=== PATIENT | female | born 1965 | race Caucasian/White ===

== ENCOUNTER → 2016-06-27 | Outpatient (CLI) | payer BC | END | disposition home or self-care (01) | LOC: C.PAPS 15:26 | PROVIDERS: ATTEND Obstetrics & Gynecology | DX: Z01.419 Encounter for gynecological examination (general) (routine) without abnormal findings (principal) ==

== ENCOUNTER → 2017-01-21 | Outpatient (CLI) | payer BC ==
--- NOTE | 2017-01-21 09:45 | DIAGNOSTIC IMAGING REPORT ---
EXAMINATION: RENAL ULTRASOUND CLINICAL HISTORY: ADRENAL HYPERPLASIA COMPARISON STUDY: None FINDINGS: The right kidney measures 10.5 cm. The left kidney measures 10.9 cm. There is no evidence of hydronephrosis. There are no renal masses. Neither adrenal gland was visualized. No bladder abnormalities are visualized. Bilateral ureteral jets were visualized. IMPRESSION : 1. Normal renal ultrasound 2. Neither adrenal gland was visualized on sonographic evaluation. If adrenal gland evaluation is desired, then a dedicated CT or MRI scan of the adrenal glands would be recommended in follow-up Electronically signed by: Pavan Vuong M.D. 01/21/2017 9:44 AM Dictated Date/Time: 01/21/2017 9:42 AM
== END | disposition home or self-care (01) ==
LOC: C.ULTR 08:59
PROVIDERS: ATTEND Family Medicine
DX: E27.8 Other specified disorders of adrenal gland (principal)

== ENCOUNTER → 2017-02-11 | Outpatient (CLI) | payer BC ==
--- NOTE | 2017-02-12 07:48 | MAMMOGRAPHY REPORT ---
BILATERAL DIGITAL SCREENING MAMMOGRAM TOMOSYNTHESIS WITH CAD: 02/11/2017 CLINICAL HISTORY: Routine screening. Patient has no complaints. TECHNIQUE: Breast tomosynthesis in addition to standard 2D mammography was performed. Current study was also evaluated with a Computer Aided Detection (CAD) system. COMPARISON: Comparison is made to exams dated: 01/25/2016 mammogram, 01/19/2015 mammogram, 01/18/2014 m ammogram, 01/17/2013 mammogram, 12/30/2011 ultrasound, and 06/27/2011 mammogram - [facility]ter. BREAST COMPOSITION: The tissue of both breasts is heterogeneously dense, which may obscure small mas ses. FINDINGS: There are multiple bilateral round and oval circumscribed masses scattered in both breasts . The circumscribed borders are best appreciated on the tomosynthesis images. This is a typically b enign mammographic pattern. No obvious angular, irregular or spiculated mass is seen. No focal area of distortion or new suspicious calcifications. IMPRESSION: ACR BI-RADS CATEGORY 2: BENIGN There is no mammographic evidence of malignancy. A 1 year screening mammogram is recommended. The pa tient will receive written notification of the results. Approximately 10% of breast cancers are not detected with mammography. A negative mammographic report should not delay biopsy if a clinically suggestive mass is present. Loli Fleming M.D. ay/:02/11/2017 15:10:11 [employer]: Sarah ZAVALA)([place]), [facility] letter sent: Normal 1/2 BI-RADS Code: ACR BI-RADS Category 2: Benign
== END | disposition home or self-care (01) ==
LOC: C.MAMM 14:39
PROVIDERS: ATTEND Family Medicine
DX: Z12.31 Encounter for screening mammogram for malignant neoplasm of breast (principal)